=== PATIENT | male | born 1975 | race Caucasian/White ===

== ENCOUNTER 2017-07-15 23:37 | Emergency (ER) | payer SELFPAY ==
[2017-07-16 00:06] VITALS: TEMP 97.8; BMI 41.8
--- NOTE | 2017-07-16 00:46 | PDOC ---
History of Present Illness - General History Source: Patient Exam Limitations: No Limitations - History of Present Illness Initial Comments: 07/16/17 01:01 The patient is a 42 year old male, with no significant past medical history, who presents to the emergency department with abdominal pain for the past few days. He describes his pain as ranging from mild to moderate, without radiation or modifying factors. He denies taking any medications during this time frame. He reports that his pain is localized in the right upper and lower quadrants, The patient denies chest pain, shortness of breath, headache and dizziness. Denies fever, chills, nausea, vomit, diarrhea and constipation. Denies dysuria, frequency, urgency and hematuria. Allergies: None Past surgical history: None reported Social history: No alcohol, tobacco or drug use reported <Raleigh Pulido - Last Filed: 07/16/17 01:01> <Estelle Ortega - Last Filed: 07/16/17 02:19> <Amanda Jefferson - Last Filed: 07/16/17 05:36> - General Chief Complaint: Pain Stated Complaint: STOMACH PAIN Time Seen by Provider: 07/16/17 00:36 Past History <Raleigh Pulido - Last Filed: 07/16/17 01:01> - Past Medical History COPD: No Other medical history: Pt denies - Suicide/Smoking/Psychosocial Hx Smoking History: Never smoked Have you smoked in the past 12 months: No Information on smoking cessation initiated: No Hx Alcohol Use: No Drug/Substance Use Hx: No Substance Use Type: None <Estelle Ortega - Last Filed: 07/16/17 02:19> <Amanda Jefferson - Last Filed: 07/16/17 05:36> - Past Medical History Allergies/Adverse Reactions: Allergies Allergy/AdvReac Type Severity Reaction Status Date / Time No Known Allergies Allergy Verified 07/16/17 00:03 Review of Systems - Review of Systems Able to Perform ROS?: Yes Comments:: 07/16/17 01:01 GENERAL/CONSTITUTIONAL: No fever or chills. No weakness. HEAD, EYES, EARS, NOSE AND THROAT: No change in vision. No ear pain or discharge. No sore throat. CARDIOVASCULAR: No chest pain or shortness of breath RESPIRATORY: No cough, wheezing, or hemoptysis. GASTROINTESTINAL: (+) Abdominal pain. No nausea, vomiting, diarrhea or constipation. GENITOURINARY: No dysuria, frequency, or change in urination. MUSCULOSKELETAL: No joint or muscle swelling or pain. No neck or back pain. SKIN: No rash NEUROLOGIC: No headache, vertigo, loss of consciousness, or change in strength/ sensation. ENDOCRINE: No increased thirst. No abnormal weight change HEMATOLOGIC/LYMPHATIC: No anemia, easy bleeding, or history of blood clots. ALLERGIC/IMMUNOLOGIC: No hives or skin allergy. <Raleigh Pulido - Last Filed: 07/16/17 01:01> *Physical Exam - Vital Signs Last Vital Signs Temp Pulse Resp BP Pulse Ox 97.8 F 75 20 135/82 98 07/16/17 00:03 07/16/17 00:03 07/16/17 00:03 07/16/17 00:03 07/16/17 00:03 - Physical Exam Comments: 07/16/17 01:01 GENERAL: Awake, alert, and fully oriented, in no acute distress HEAD: No signs of trauma, normocephalic, atraumatic EYES: PERRLA, EOMI, sclera anicteric, conjunctiva clear ENT: Auricles normal inspection, hearing grossly normal, nares patent, oropharynx clear without exudates. Moist mucosa NECK: Normal ROM, supple, no lymphadenopathy, JVD, or masses LUNGS: No distress, speaks full sentences, clear to auscultation bilaterally HEART: Regular rate and rhythm, normal S1 and S2, no murmurs, rubs or gallops, peripheral pulses normal and equal bilaterally. ABDOMEN: (+) Right upper and lower abdominal tenderness to deep palpation. Soft , normoactive bowel sounds. No guarding, no rebound. No masses EXTREMITIES : Normal inspection, Normal range of motion, no edema. No clubbing or cyanosis. NEUROLOGICAL: Cranial nerves II through XII grossly intact. Normal speech, normal gait, no focal sensorimotor deficits SKIN: Warm, Dry, normal turgor, no rashes or lesions noted <Raleigh Pulido - Last Filed: 07/16/17 01:01> - Vital Signs Last Vital Signs Temp Pulse Resp BP Pulse Ox 97.8 F 75 20 135/82 98 07/16/17 00:03 07/16/17 00:03 07/16/17 00:03 07/16/17 00:03 07/16/17 00:03 <Estelle Ortega - Last Filed: 07/16/17 02:19> - Vital Signs Last Vital Signs Temp Pulse Resp BP Pulse Ox 97.8 F 75 20 135/82 98 07/16/17 00:03 07/16/17 00:03 07/16/17 00:03 07/16/17 00:03 07/16/17 00:03 <Amanda Jefferson - Last Filed: 07/16/17 05:36> ED Treatment Course - LABORATORY CBC & Chemistry Diagram: 07/16/17 01:18 07/16/17 01:18 <Estelle Ortega - Last Filed: 07/16/17 02:19> - LABORATORY CBC & Chemistry Diagram: 07/16/17 01:18 07/16/17 01:18 - ADDITIONAL ORDERS Additional order review: Laboratory Results 07/16/17 01:18 Sodium 138 Potassium 4.4 Chloride 100 Carbon Dioxide 30 Anion Gap 8 BUN 18 Creatinine 1.1 Creat Clearance w eGFR > 60 Random Glucose 126 H Calcium 8.4 L Total Bilirubin 0.6 AST 36 ALT 54 Alkaline Phosphatase 81 Total Protein 7.8 Albumin 3.9 Lipase 189 07/16/17 01:18 RBC 4.79 MCV 87.9 MCHC 35.5 RDW 13.6 MPV 10.6 Neutrophils % 49.5 Lymphocytes % 42.1 H Monocytes % 5.2 Eosinophils % 2.5 Basophils % 0.7 - Medications Given in the ED: ED Medications Discontinued Medications Generic Name Dose Route Start Last Admin Trade Name Freq PRN Reason Stop Dose Admin Sodium Chloride 1,000 mls @ 1,000 mls/hr 07/16/17 00:47 07/16/17 01:27 Normal Saline - IV 07/16/17 01:46 1,000 mls/hr ASDIR STA Administration <Amanda Jefferson - Last Filed: 07/16/17 05:36> Medical Decision Making - Medical Decision Making 07/16/17 00:50 42-year-old male states than right-sided abdominal pain for several days without fever, chills, nausea, vomiting or diarrhea. Patient denies any abdominal surgeries or regular prescription medications On exam, there is some discomfort to deep palpation but no rebound ,the pain is mid rt abd extending to rlq 07/16/17 02:19 <Estelle Ortega - Last Filed: 07/16/17 02:19> - Medical Decision Making 07/16/17 05:34 CTAP negative for appendicitis. normal study. cleared for DC home <Amanda Jefferson - Last Filed: 07/16/17 05:36> *DC/Admit/Observation/Transfer - Attestations Scribe Attestion: 07/16/17 01:01 Documentation prepared by Raleigh Pulido, acting as medical health researcher for Estelle Ortega MD <Raleigh Pulido - Last Filed: 07/16/17 01:01> <Estelle Ortega - Last Filed: 07/16/17 02:19> - Discharge Dispostion Admit: No <Amanda Jefferson - Last Filed: 07/16/17 05:36> Diagnosis at time of Disposition: Abdominal pain - Discharge Dispostion Disposition: HOME Condition at time of disposition: Good - Patient Instructions Printed Discharge Instructions: DI for Abdominal Pain-Adult Additional Instructions: eat a regular diet return to the ER immediatley if: fever over 101 unable to tolerate food or drink recurrent severe pain.
[2017-07-16] MEDS ORDERED: SODIUM CHLORIDE 1,000 ML IV STA (00:47)
[2017-07-16 01:28] LABS: BASO % 0.7 % (0-2.0); EOS % 2.5 % (0-4.5); HEMATOCRIT 42.1 % (35.4-49); HEMOGLOBIN 14.9 GM/dL (11.7-16.9); LYMPH % 42.1 % (8-40); MCH 31.2 pg (25.7-33.7); MCHC 35.5 g/dl (32.0-35.9); MEAN CELL VOLUME 87.9 fl (80-96); MEAN PLT VOLUME 10.6 fl (7.5-11.1); MONO % 5.2 % (3.8-10.2); NEUT % 49.5 % (42.8-82.8); PLATELET COUNT 124 K/MM3 (134-434); RBC 4.79 M/mm3 (4.00-5.60); RDW 13.6 % (11.9-15.9); WHITE BLOOD COUNT 8.4 K/mm3 (4.0-10.0)
[2017-07-16 02:27] LABS: ALBUMIN 3.9 g/dl (3.4-5.0); ANION GAP 8 (8-16); BLOOD UREA NITROGEN 18 mg/dL (7-18); CALCIUM 8.4 mg/dL (8.5-10.1); CHLORIDE 100 mmol/L (98-107); CO2 30 mmol/L (21-32); LIPASE 189 U/L (73-393); SODIUM 138 mmol/L (136-145)
[2017-07-16 02:29] LABS: ALK PHOS 81 U/L (45-117); BILIRUBIN,TOTAL 0.6 mg/dL (0.2-1.0); CREATININE 1.1 mg/dL (0.7-1.3); TOT PROT 7.8 g/dl (6.4-8.2)
[2017-07-16 02:30] LABS: GLUCOSE,RANDOM 126 mg/dL (74-106); POTASSIUM 4.4 mmol/L (3.5-5.1); SGOT/AST 36 U/L (15-37); SGPT/ALT 54 U/L (12-78)
[2017-07-16 05:59] VITALS: BP 135/80; PULSE 76
== END 2017-07-16 05:59 | disposition home or self-care (01) ==
LOC: JER 23:37
PROC: 3E0337Z Introduction of Electrolytic and Water Balance Substance into Peripheral Vein, Percutaneous Approach (ICD-10-PCS; principal; 2017-07-15)
DX: R10.9 Unspecified abdominal pain (principal)
CPT/HCPCS: 36415; 74177-TC; 80053; 83690; 85025; 99282-25

== ENCOUNTER 2022-11-02 16:35 | Emergency (ER) | payer BC, OTHER ==
[2022-11-02 17:20] VITALS: BP 114/71; PULSE 67; RESP 18; TEMP 97.8; BMI 46.6
[2022-11-02] MEDS ORDERED: ACETAMINOPHEN 1000 MG/100 ML BAG IVPB ONE (19:00)
[2022-11-02] MEDS ORDERED: LIDOCAINE 5% TOPICAL PATCH TP ONE (19:00)
[2022-11-02] MEDS ORDERED: ACETAMINOPHEN INJECTION 100 ML IVPB ONE (19:44)
[2022-11-02] MEDS ORDERED: LIDOCAINE 5% TOPICAL PATCH ONE (19:45)
[2022-11-02 19:47] LABS: BASO % 0.9 % (0-2.0); EOS % 2.9 % (0-4.5); HEMATOCRIT 41.6 % (35.4-49); HEMOGLOBIN 14.6 GM/dL (11.7-16.9); LYMPH % 39.5 % (8-40); MEAN CELL VOLUME 85.7 fl (80-96); MEAN PLT VOLUME 10.7 fl (7.5-11.1); NEUT % 51.7 % (42.8-82.8); PLATELET COUNT 123 10^3/uL (134-434); RBC 4.86 M/mm3 (4.00-5.60); RDW 13.8 % (11.9-15.9); WHITE BLOOD COUNT 7.5 K/mm3 (4.0-10.0)
[2022-11-02] MEDS ORDERED: ACETAMINOPHEN 500 MG TABLET (FP) ONE (19:52)
[2022-11-02 20:13] LABS: POTASSIUM 3.7 mmol/L (3.5-5.1)
[2022-11-02 20:14] LABS: CALCIUM 8.6 mg/dL (8.5-10.1)
[2022-11-02 20:15] LABS: ALBUMIN 3.6 g/dl (3.4-5.0)
[2022-11-02 20:18] LABS: CREATININE 1.1 mg/dL (0.55-1.3)
[2022-11-02 20:20] LABS: BILIRUBIN,TOTAL 0.4 mg/dL (0.2-1)
[2022-11-02] MEDS ORDERED: ACETAMINOPHEN 325 MG TABLET (FP) PO ONE (20:27)
[2022-11-02] MEDS ORDERED: LIDOCAINE PATCH REMOVAL MC SCH (22:00)
== END 2022-11-02 21:57 | disposition home or self-care (01) ==
LOC: JER 16:35
DX: M54.9 Dorsalgia, unspecified (principal); R07.89 Other chest pain
CPT/HCPCS: 36415; 71045-TC-FY; 71250-TC; 72128-TC; 80053; 84484; 85025; 93005; 93010; 99285-25

== ENCOUNTER 2024-09-25 18:40 | Emergency (ER) | payer BC, OTHER ==
[2024-09-25 18:44] VITALS: RESP 18; BMI 46.5
[2024-09-25] MEDS ORDERED: KETOROLAC TROMETHAMINE 15 MG/ML VIAL ONE (19:42)
[2024-09-25 19:44] LABS: ABSOLUTE IMMATURE GRANULOCYTES 0.02 x10^3/uL (0.0-0.031); BASOPHILS # 0.04 x10^3/uL (0.01-0.08); EOSINOPHIL % 4.3 % (0.8-7.0); EOSINOPHILS # 0.35 x10^3/uL (0.04-0.54); HEMATOCRIT 44.4 % (40.1-51.0); HEMOGLOBIN 14.7 g/dL (13.7-17.5); MCHC 33.1 g/dl (32.3-36.5); MEAN CELL VOLUME 89.5 fl (79.0-92.2); MEAN PLT VOLUME 12.5 fl (9.4-12.4); MONOCYTE # 0.51 x10^3/uL (0.30-0.82); MONOCYTE % 6.2 % (5.3-12.2); PLATELET COUNT 147 x10^3/uL (163-337); RDW 13.2 % (12.1-15.9)
[2024-09-25] MEDS: KETOROLAC TROMETHAMINE 15 MG/ML VIAL IVPUSH ONE (19:44)
[2024-09-25] MEDS: SODIUM CHLORIDE 0.9% 500 ML INFUS.BAG IV ONE (19:44)
[2024-09-25 19:45] LABS: PH,URINE 5.5 (5.0-8.0); URINE APPEARANCE TURBID; URINE BILIRUBIN NEGATIVE (NEGATIVE); URINE COLOR YELLOW; URINE GLUCOSE (UA) NEGATIVE (NEGATIVE); URINE KETONE TRACE (NEGATIVE); URINE LEUK ESTERASE NEGATIVE (NEGATIVE); URINE NITRITE NEGATIVE (NEGATIVE); URINE PROTEIN TRACE (NEGATIVE); URINE UROBILINOGEN 0.2 mg/dL (0.2-1.0)
[2024-09-25 20:03] LABS: POTASSIUM 4.2 mmol/L (3.5-5.1)
[2024-09-25 20:05] LABS: CALCIUM 9.2 mg/dL (8.5-10.1)
[2024-09-25 20:06] LABS: ALBUMIN 3.8 g/dl (3.4-5.0); BLOOD UREA NITROGEN 17.8 mg/dL (7-18)
[2024-09-25 20:09] LABS: CREATININE 1.1 mg/dL (0.55-1.3)
[2024-09-25 20:11] LABS: BILIRUBIN,TOTAL 0.4 mg/dL (0.2-1); TOT PROT 7.6 g/dl (6.4-8.2)
[2024-09-25 21:19] LABS: HIV INTERPRETATION NEGATIVE (NEGATIVE)
[2024-09-25 21:20] LABS: HCV DIAGNOSTIC IN-HOUSE W/RFLX NON-REACTIVE (NONREACTIVE)
[2024-09-25 23:05] VITALS: BP 144/90; PULSE 70; TEMP 97.9
== END 2024-09-25 23:10 | disposition home or self-care (01) ==
LOC: JER 18:40
PROC: 3E0333Z Introduction of Anti-inflammatory into Peripheral Vein, Percutaneous Approach (ICD-10-PCS; principal; 2024-09-25)
DX: R10.31 Right lower quadrant pain (principal)
CPT/HCPCS: 36415; 74177-TC; 80053; 81003; 83735; 85025; 86803; 87086; 87389; 99285-25; Q9967

== ENCOUNTER 2024-09-26 09:29 | Emergency (ER) | payer BC, OTHER ==
[2024-09-26 09:37] VITALS: RESP 20; TEMP 98.4; BMI 47.0
[2024-09-26] MEDS ORDERED: KETOROLAC TROMETHAMINE 15 MG/ML VIAL ONE (10:18)
[2024-09-26] MEDS: KETOROLAC TROMETHAMINE 15 MG/ML VIAL IVPUSH ONE (10:28)
[2024-09-26 10:35] LABS: ABSOLUTE IMMATURE GRANULOCYTES 0.02 x10^3/uL (0.0-0.031); BASOPHILS # 0.05 x10^3/uL (0.01-0.08); EOSINOPHILS # 0.32 x10^3/uL (0.04-0.54); HEMATOCRIT 44.2 % (40.1-51.0); HEMOGLOBIN 14.9 g/dL (13.7-17.5); MCHC 33.7 g/dl (32.3-36.5); MEAN CELL VOLUME 87.9 fl (79.0-92.2); MEAN PLT VOLUME 12.2 fl (9.4-12.4); MONOCYTE # 0.42 x10^3/uL (0.30-0.82); MONOCYTE % 5.2 % (5.3-12.2); PLATELET COUNT 142 x10^3/uL (163-337)
[2024-09-26 11:00] LABS: POTASSIUM 3.6 mmol/L (3.5-5.1)
[2024-09-26 11:02] LABS: BLOOD UREA NITROGEN 11.6 mg/dL (7-18); CALCIUM 9.2 mg/dL (8.5-10.1)
[2024-09-26 11:05] LABS: CREATININE 0.9 mg/dL (0.55-1.3)
[2024-09-26 11:07] LABS: BILIRUBIN,TOTAL 0.8 mg/dL (0.2-1); TOT PROT 7.6 g/dl (6.4-8.2)
[2024-09-26] MEDS ORDERED: morphine SULFATE 4 MG/ML VIAL ONE (11:07)
[2024-09-26] MEDS: morphine CARPU-JECT 4 MG/1 ML DISP.SYRIN IVPUSH ONE (11:13)
[2024-09-26 14:53] VITALS: BP 143/97; PULSE 68
[2024-09-26] MEDS: LACTATED RINGERS SOLUTION 1000 ML INFUS.BAG IV ONE (15:36)
== END 2024-09-26 15:49 | disposition home or self-care (01) ==
LOC: JER 09:29
PROC: 3E0333Z Introduction of Anti-inflammatory into Peripheral Vein, Percutaneous Approach (ICD-10-PCS; principal; 2024-09-26)
PROC: 3E033NZ Introduction of Analgesics, Hypnotics, Sedatives into Peripheral Vein, Percutaneous Approach (ICD-10-PCS; 2024-09-26)
DX: R10.11 Right upper quadrant pain (principal); R94.31 Abnormal electrocardiogram [ECG] [EKG]
CPT/HCPCS: 36415; 76705-TC; 76775-TC; 76856-TC; 80053; 83605; 83690; 84484; 85025; 93005; 93010; 99285-25

== ENCOUNTER 2024-10-29 14:30 | Emergency (ER) | payer BC, OTHER ==
[2024-10-29 14:36] VITALS: BP 162/97; PULSE 96; RESP 16; TEMP 98; BMI 47.0
[2024-10-29] MEDS ORDERED: NAPROXEN 500 MG TABLET ONE (16:03)
[2024-10-29] MEDS: NAPROXEN 500 MG TABLET PO ONE (16:09)
== END 2024-10-29 16:10 | disposition home or self-care (01) ==
LOC: JERFT 14:30
DX: S93.402A Sprain of unspecified ligament of left ankle, initial encounter (principal); X50.1XXA Overexertion from prolonged static or awkward postures, initial encounter
CPT/HCPCS: 73610-TC-LT-FY; 99283-25